=== PATIENT | female | born 1945 | race Caucasian/White ===

== ENCOUNTER 2018-02-26 10:26 | Inpatient (IN) | payer OTHER ==
[2018-02-26] MEDS ORDERED: NEOSTIGMINE 3 MG/3 ML SYRINGE (11:29)
[2018-02-26] MEDS ORDERED: FENTAnyl 50 MCG/ML VIAL ×2 (11:29→11:30)
[2018-02-26] MEDS ORDERED: MIDAZOLAM 1 MG/ML 2 ML INJ (11:29)
[2018-02-26] MEDS ORDERED: DEXAMETHASONE 4 MG/ML 1 ML INJ (11:29)
[2018-02-26] MEDS ORDERED: ONDANSETRON 4 MG INJ (11:29)
[2018-02-26] MEDS ORDERED: CEFAZOLIN 1 GM INJ (11:29)
[2018-02-26] MEDS ORDERED: GLYCOPYRROLATE 0.4 MG INJ (11:29)
[2018-02-26] MEDS ORDERED: ROCURONIUM 50 MG INJ (11:29)
[2018-02-26] MEDS ORDERED: PROPOFOL 20 ML (11:29)
[2018-02-26] MEDS ORDERED: BUPIVACAINE 0.75%/DEXT (SPINAL) 2 ML INJ (11:30)
[2018-02-26] MEDS: LACTATED RINGER'S 1,000 ML IV (11:54)
[2018-02-26] MEDS ORDERED: MAGNESIUM HYDROXIDE 30ML CUP PO (12:00)
[2018-02-26] MEDS ORDERED: NALOXONE (0.4 MG/ML) INJ IV ×3 (12:00→14:00)
[2018-02-26] MEDS: ONDANSETRON 4 MG INJ IV ×3 (12:00→19:47)
[2018-02-26] MEDS ORDERED: BISACODYL 10 MG SUPP PR (12:00)
[2018-02-26] MEDS ORDERED: NA PHOSPHATE/BIPHOS 133 ML ENEMA PR (12:00)
[2018-02-26] MEDS ORDERED: oxyCODONE 5 MG TAB PO ×3 (12:00)
[2018-02-26] MEDS ORDERED: BETHANECHOL 25 MG TAB PO (12:00)
[2018-02-26] MEDS ORDERED: DIPHENHYDRAMINE 50 MG INJ IV ×2 (12:00→14:00)
[2018-02-26] MEDS ORDERED: SENNA/DOCUSATE NA (8.6MG/50MG) TAB PO (12:00)
[2018-02-26] MEDS: TRANEXAMIC ACID 1,000 MG in D5W 100 ML AT CLOSURE X1 IVPB ×2 (13:16→13:28)
[2018-02-26] MEDS ORDERED: morphine SULFATE/PF (10 MG/10 ML) INJ (13:29)
[2018-02-26] MEDS ORDERED: MEPERIDINE 25 MG INJ IV (14:00)
[2018-02-26] MEDS ORDERED: LABETALOL HCL 20MG INJ IV (14:00)
[2018-02-26] MEDS ORDERED: OXYCODONE/ACETAMINOPHEN (5/325) TAB PO ×2 (14:00)
[2018-02-26] MEDS ORDERED: hydrALAzine 20 MG INJ IV (14:00)
[2018-02-26] MEDS ORDERED: TRIMETHOBENZAMIDE 100 MG/ML VIAL IM (14:00)
[2018-02-26] MEDS ORDERED: EPHEDrine SULFATE 50 MG/5 ML SYG IV (14:00)
[2018-02-26] MEDS ORDERED: HYDROmorphONE 1 MG/5 ML IV SYRINGE IV ×3 (14:00)
[2018-02-26] MEDS ORDERED: IPRATROPIUM (NEB) 0.5 MG/2.5 ML AMP HHN (14:00)
[2018-02-26] MEDS ORDERED: MIDAZOLAM 1 MG/ML 2 ML INJ IV (14:00)
[2018-02-26] MEDS ORDERED: ALBUTEROL 0.083% (NEB) 2.5 MG/3 ML AMP HHN (14:00)
[2018-02-26] MEDS ORDERED: FENTAnyl 50 MCG/ML VIAL IV ×3 (14:00)
[2018-02-26] MEDS: BACITRACIN 50000 UNITS INJ (14:14)
[2018-02-26] MEDS: POLYMYXIN B 500000 UNIT INJ (14:14)
[2018-02-26] MEDS ORDERED: ROPIVACAINE 0.5 % 30 ML VIAL (15:07)
[2018-02-26] MEDS ORDERED: SUGAMMADEX SODIUM 200 MG/2 ML VIAL IV (15:16)
[2018-02-26] MEDS: CEFAZOLIN 1 GM/50 ML (PMX) 50 ML IVPB ×2 (15:52→20:33)
[2018-02-26] MEDS: SOD CHLORIDE 0.9% 1,000 ML IV (15:53)
[2018-02-26] MEDS: DOCUSATE SODIUM 100 MG CAP PO (15:53)
[2018-02-26] MEDS: ASPIRIN (EC) 325 MG TAB PO (15:53)
[2018-02-26] MEDS: CEFAZOLIN 2 GM/50 ML (PMX) 50 ML (FOR WT < 120 KG) IVPB (16:15)
[2018-02-26] MEDS: TRANEXAMIC ACID 1,000 MG in D5W 100 ML AT INCISION X1 IVPB (16:15)
[2018-02-26] MEDS ORDERED: PHENYTOIN SODIUM 30 MG PO (21:00)
[2018-02-26] MEDS ORDERED: GABAPENTIN 100 MG CAP PO ×2 (21:00)
[2018-02-26] MEDS: PRIMIDONE 50 MG TAB PO (22:28)
[2018-02-26] MEDS: PHENYTOIN 100 MG CAP PO (22:28)
[2018-02-26] MEDS: CELECOXIB 100 MG CAP PO (22:28)
[2018-02-27] MEDS: SOD CHLORIDE 0.9% 1,000 ML IV ×2 (00:06→03:49)
[2018-02-27] MEDS: ONDANSETRON 4 MG INJ IV ×2 (00:10→06:04)
[2018-02-27] MEDS: CEFAZOLIN 1 GM/50 ML (PMX) 50 ML IVPB (03:49)
[2018-02-27 05:31] LABS: ADD MAN DIFF? NO
[2018-02-27 05:32] LABS: BASOPHILS % 0.3 % (0.0-2.0); HEMATOCRIT 36.2 % (37.0-47.0); HEMOGLOBIN 12.2 g/dl (12.0-16.0); LYMPHOCYTES # 1.2 10^3/ul (0.8-2.9); LYMPHOCYTES % 10.3 % (15.0-51.0); MEAN CORPUSCULAR HEMOGLOBIN 30.9 pg (29.0-33.0); MEAN CORPUSCULAR HGB CONC 33.7 g/dl (32.0-37.0); MEAN CORPUSCULAR VOLUME 91.6 fl (82.0-101.0); MEAN PLATELET VOLUME 12.5 fl (7.4-10.4); MONOCYTE # 0.9 10^3/ul (0.3-0.9); MONOCYTES % 7.8 % (0.0-11.0); NEUTROPHIL # 9.3 10^3/ul (1.6-7.5); NEUTROPHILS % 81.3 % (39.0-77.0); PLATELET COUNT 116 10^3/UL (140-415); RED BLOOD COUNT 3.95 10^6/ul (4.20-5.40); RED CELL DISTRIBUTION WIDTH 13.2 % (11.5-14.5)
[2018-02-27 05:32] LABS: WHITE BLOOD COUNT 11.5 10^3/ul (4.8-10.8)
[2018-02-27 06:01] LABS: ANION GAP 12 (8-16); BLOOD UREA NITROGEN 11 mg/dl (7-20); CARBON DIOXIDE 24 mmol/L (21-31); CHLORIDE 107 mmol/L (97-110); CREATININE 0.47 mg/dl (0.44-1.00); GLUCOSE 129 mg/dl (70-220); POTASSIUM 4.7 mmol/L (3.5-5.1); SODIUM 138 mmol/L (135-144)
[2018-02-27] MEDS: ATENOLOL 25 MG TAB PO (09:48)
[2018-02-27] MEDS: DOCUSATE SODIUM 100 MG CAP PO (09:48)
[2018-02-27] MEDS: PRIMIDONE 50 MG TAB PO ×2 (09:48→12:43)
[2018-02-27] MEDS: FERROUS FUMARATE (SR) TAB PO (09:48)
[2018-02-27] MEDS: CELECOXIB 100 MG CAP PO (09:49)
[2018-02-27] MEDS: GABAPENTIN 100 MG CAP PO ×2 (09:49→12:43)
[2018-02-27] MEDS: ASPIRIN (EC) 325 MG TAB PO (09:49)
[2018-02-27] MEDS: FLUCONAZOLE 200 MG TAB PO (09:49)
[2018-02-27] MEDS: LACTATED RINGER'S 1,000 ML IV (10:00)
[2018-02-28] MEDS ORDERED: PANTOPRAZOLE (EC) 40 MG TAB PO (06:00)
== END 2018-02-27 16:40 | disposition home health service (06) | DRG 470 ==
LOC: REC 10:26 → MS1 17:10
PROC: 0SRC0J9 Replacement of Right Knee Joint with Synthetic Substitute, Cemented, Open Approach (ICD-10-PCS; principal; 2018-02-26 13:00)
DX: M17.11 Unilateral primary osteoarthritis, right knee (principal); I10 Essential (primary) hypertension; R25.1 Tremor, unspecified
CPT/HCPCS: 73560; 80048; 85025; 86850; 86900; 86901; 87081; 88304; 88311; 97116; 97162; 97165; 97530